=== PATIENT | female | born 1980 | race Caucasian/White ===

== ENCOUNTER 2016-10-15 08:19 | Emergency (ER) | payer OTHER ==
[~2016-10-15 08:19] MED LIST: AMOXICILLIN500 M1 PO; IBUPROFEN800 MG PO; LORTAB 7.5-3251 EACH PO; MUCINEX DM1 TAB.SR . PO; NECON1 EACH PO; NO MEDICATIONS; TRAMADOL HCL50 M1 PO; VIBRAMYCIN100 M1 PO; VICODIN 5/1 TAB 5/50 PO; VISTARIL PO; VOLTAREN75 MG PO; ZITHROMAX PO
== END 2016-10-15 08:48 | disposition home or self-care (01) ==
LOC: CED 08:19
DX: L03.314 Cellulitis of groin (principal); L03.317 Cellulitis of buttock; L02.214 Cutaneous abscess of groin; L02.31 Cutaneous abscess of buttock; F17.200 Nicotine dependence, unspecified, uncomplicated
CPT/HCPCS: 99282

== ENCOUNTER 2016-10-19 07:36 | Inpatient (IN) | payer OTHER ==
--- NOTE | ~2016-10-19 | OR ---
Unit #: [id number] #: [id number] Patient: SANTI LATHAM [id number] [address] [address] [id number] I MR#: [id number] NAME: SANTI LATHAM ROOM: 464 Date of Procedure: 10/19/2016 Admission Date: 10/19/2016 Surgeon: Aric Durbin M.D. : 1980 Attending Physician: Monica Acosta M.D. OPERATIVE REPORT PREOPERATIVE DIAGNOSIS Left groin abscess. POSTOPERATIVE DIAGNOSIS Left groin abscess. PROCEDURE PERFORMED Excisional debridement down to muscle fascia of 10 cm x 3 cm left groin abscess with a knife. ANESTHESIA General anesthesia. ESTIMATED BLOOD LOSS Minimal. IV FLUIDS 500 crystalloid. COMPLICATIONS None. INDICATIONS FOR PROCEDURE The patient is a 36-year-old IV drug abuser, who has an abscess in her left groin. DESCRIPTION OF PROCEDURE The patient was taken to the operating theater and placed in supine position. General anesthesia was induced. Left groin was prepped and draped. An elliptical incision was then made inclusive with necrosis measuring 10 x 3 cm. This was taken down to the muscle fascia. There were multiple loculations, which were broken up. I took anaerobic and aerobic cultures. I excised all necrotic tissue with a knife. I then irrigated with normal saline and packed with Betadine. The patient tolerated the procedure well and sent to recovery room in good condition. Dictated by... Cesia Solomon/andres Unit #: [id number] #: [id number] Patient: SANTI LATHAM TD: 10/20/2016 22:50 JOB #: [id number] OPERATIVE REPORT Page 1 of 1 X Aric Durbin MD PROCEDURE OPERATIVE NOTE
--- NOTE | ~2016-10-19 | CO ---
Unit #: [id number] #: [id number] Patient: SANTI LATHAM [id number] [address] [place], [place] [address] [id number] I MR#: [id number] NAME: SANTI LATHAM. ROOM: 464 Age: 36 Sex: F Admission Date: 10/19/2016 : 1980 Attending Physician: Monica Acosta M.D. Consultation Date: 10/20/2016 CONSULTATION REPORT BRIEF HISTORY The patient is a 37-year-old with long-term history of IV drug abuse, who presents with enlarging left groin mass. She has been here for approximately 1 week. She has been injecting IV drugs into this region. PAST MEDICAL HISTORY She has had previous drainages of abscess secondary to IV drug abuse. She has had a tubal ligation. MEDICATIONS None. SOCIAL HISTORY IV drugs specifically heroin and methamphetamine. Does smoke half pack of cigarettes daily. FAMILY HISTORY Negative for GI malignancy. REVIEW OF SYSTEMS No cardiopulmonary complaints at this time. Else, 10 systems reviewed and negative. PHYSICAL EXAMINATION GENERAL: She is awake, alert, appropriate, currently afebrile. HEENT: Unremarkable. NECK: Supple. No JVD. Trachea midline. LUNGS: Clear to auscultation. Bilateral breath sounds symmetric. CARDIOVASCULAR: Regular rate and rhythm. ABDOMEN: Soft, nontender, and nondistended. I palpate no masses. No hepatosplenomegaly. EXTREMITIES: Shows a mass in the left groin measuring 12 cm x 3 cm. This is fluctuant tender with erythema. DIAGNOSTIC STUDIES LABORATORY RESULTS: Show a white count of 7.8. ASSESSMENT Left groin abscess. PLAN Recommend I and D of left groin abscess discussed in detail. Unit #: [id number] #: [id number] Patient: SANTI LATHAM Dictated by... Cesia SolomonO/andres TD: 10/20/2016 06:54 JOB #: [id number] CONSULTATION REPORT Page 1 of 1 X Aric Durbin MD X CONSULTATION REPORT
--- NOTE | ~2016-10-19 | DS ---
Unit #: [id number] #: [id number] Patient: SANTI LATHAM [id number] [address] [address] [id number] I MR#: [id number] NAME: SANTI LATHAM ROOM: 464 Age: 36 Sex: F Admission Date: 10/19/2016 : 1980 Discharge Date: 10/21/2016 Attending Physician: Monica Acosta M.D. Primary Care Physician: No Primary Care Physician DISCHARGE SUMMARY ADDENDUM Patient's laboratory results were reviewed and patient is positive for hepatitis C. To the best of my knowledge, this is a new diagnosis. When I attempted to contact patient with information as provided on last admission, I reached her mother who stated she does not have a contact number for the patient and patient no longer lives at the address listed. If patient is readmitted, will need to discuss outpatient treatment of hepatitis C. Dictated by... Monica Acosta M.D. KATHYA/dean TD: 10/24/2016 10:05 JOB #: [id number] DISCHARGE SUMMARY Page 1 of 1 X Monica Acosta MD X DISCHARGE SUMMARY
--- NOTE | ~2016-10-19 | DS ---
Unit #: [id number] #: [id number] Patient: SANTI LATHAM [id number] [address] [address] [id number] I MR#: [id number] NAME: SANTI LATHAM ROOM: 464 Age: 36 Sex: F Admission Date: 10/19/2016 : 1980 Discharge Date: 10/21/2016 Attending Physician: Monica Acosta M.D. Primary Care Physician: No Primary Care Physician DISCHARGE SUMMARY ADDENDUM I am still awaiting approval of Dalvance. However, the patient is clinically stable and leaving the floor frequency. If Dalvance is not approved today, I will send her home on clindamycin 300 mg p.o. t.i.d. for 10 days. Dictated by... Monica Acosta M.D. [facility]/ravin TD: 10/21/2016 22:05 JOB #: [id number] DISCHARGE SUMMARY Page 1 of 1 X Monica Acosta MD DISCHARGE SUMMARY
--- NOTE | ~2016-10-19 | DS ---
Unit #: [id number] #: [id number] Patient: SANTI WANG [id number] [address] [address] [id number] I MR#: [id number] NAME: SANTI WANG ROOM: 464 Age: 36 Sex: F Admission Date: 10/19/2016 : 1980 Discharge Date: 10/21/2016 Attending Physician: Monica Acosta M.D. Primary Care Physician: Primary Care Physician No DISCHARGE SUMMARY PRINCIPAL DIAGNOSES 1. Left groin abscess, status post incision and drainage and debridement. 2. Hypokalemia. 3. Hypomagnesemia. 4. Normocytic anemia. 5. IV drug abuse. 6. Polysubstance abuse including methamphetamine and heroin. 7. Tobaccoism. CONSULTANTS Dr. Durbin, general surgery PROCEDURES Excision debridement down to muscle and fascia of 10 cm x 3 cm left groin abscess. This occurred without complication. CLINICAL HISTORY AND HOSPITAL COURSE Ms. Wang is a 36-year-old female who presents to the emergency department with swelling and redness of the left groin. The patient has a history of MRSA abscess in the past. In the emergency department, the patient was afebrile and white blood cell count was normal. However, examination revealed significant abscess in the left groin and patient was subsequently admitted. Dr. Durbin was consulted and patient underwent incision, drainage and debridement of the region. Postoperatively she has done well. Unfortunately, cultures from surgery were not sent and, given her history of MRSA, I am going to try to arrange Dalvance to give her prior to discharge. She will have to pack wound twice daily and patient states she feels comfortable doing this. DISCHARGE CONDITION Stable. DISCHARGE STATUS Discharge to home. DISCHARGE MEDICATIONS 1. Percocet 5/325 one tablet p.o. q.4 h. p.r.n. for pain. Number given 15. 2. Dalvance 1500 mg IV x1. DISCHARGE INSTRUCTIONS 1. The patient was instructed to do normal saline wet to dry dressings Unit #: [id number] #: [id number] Patient: SANTI WANG b.i.d. 2. She is to refrain from any further IV drug abuse and/or tobacco use. 3. She can increase her activity as tolerated. FOLLOWUP The patient will follow up in [place] wound clinic in 10-14 days. Dictated by... Monica Acosta M.D. KATHYA/mirian TD: 10/21/2016 19:11 JOB #: [id number] DISCHARGE SUMMARY Page 1 of 1 X Monica Acosta MD X DISCHARGE SUMMARY
--- NOTE | ~2016-10-19 | HP ---
Unit #: [id number] #: [id number] Patient: SANTI LATHAM [id number] [address] [place], [place] [address] [id number] E MR#: [id number] NAME: SANTI LATHAM ROOM: Age: 36 Sex: F Admission Date: 10/19/2016 : 1980 Attending Physician: Zander Lua Aprn Primary Care Physician: No Primary Care Physician HISTORY AND PHYSICAL CHIEF COMPLAINT Abscess. HISTORY OF PRESENT ILLNESS The patient is a 36-year-old female with a past medical history of IV drug use, MRSA, seizure, who presented to the emergency department for evaluation of the above. The patient states that she has had an abscess in the left groin for about six days. She states that it started as a bump. It has gotten increasingly red, warm and painful. She was seen in the emergency department on October 25, 2016 for the same problem. She was discharged home on Bactrim which she states that she has been taking as prescribed. These symptoms have persisted and so she returned today for evaluation. She states that the area has been draining pus. She denies any fever. She has had nausea, vomiting. In the emergency department, initial temperature was 97.7, pulse 82, blood pressure 107/86, WBC count 7.6. She was given Rocephin. She is being admitted to [facility] for evaluation and further treatment. PAST MEDICAL HISTORY 1. Admission to [facility], December 03-2015 for right upper extremity abscess. She underwent incision and drainage during that admission. Wound culture from December 05, 2015 grew rare MRSA and 1+ (1) . 2. History of seizure. The patient denies current antiepileptic medication. She states that her last seizure was more than a year ago. PAST SURGICAL HISTORY 1. Incision and drainage right upper extremity abscess. 2. Bilateral tuba ligation. SOCIAL HISTORY The patient uses IV drugs, specifically heroin. The last use was on the day prior to admission. She also reports methamphetamine use. She denies alcohol use. She smokes a half pack of cigarettes daily. FAMILY HISTORY Notable for both parents being healthy REVIEW OF SYSTEMS Unit #: [id number] #: [id number] Patient: SANTI LATHAM A complete review of systems is negative except as indicated in the HPI. PHYSICAL EXAMINATION GENERAL APPEARANCE: The patient is a female who is sleeping but wakes to voice. VITAL SIGNS: Temperature 97.7. Pulse 82. Respirations 18. Blood pressure 107/86. HEENT: The head is atraumatic. Dentition is poor. NECK: Supple. Trachea is midline. CARDIOVASCULAR: Regular rate and rhythm. LUNGS: Clear to auscultation bilaterally with no increased work of breathing. ABDOMEN: Soft, nontender with bowel sounds present in all four quadrants. EXTREMITIES: Nontender with no pedal edema. NEUROLOGIC: The patient is awake and alert. She follows commands. PSYCHIATRIC: Mood and affect are normal. The patient is cooperative. SKIN: The left groin area demonstrates an area of erythema, warmth and tenderness to palpation. DIAGNOSTIC STUDIES LABORATORY: Complete blood count is completely normal. Urine tox screen is positive for amphetamine and opiates. Lactic acid is 0.8. Comprehensive metabolic panel notable for sodium of 130, potassium 2.8, chloride 91, BUN and creatinine 8 and 0.7 respectively, calcium 8.3 but corrects when albumin of 3.1 is accounted for, AST 43. Urine test is negative. ASSESSMENT The patient is a 36-year-old female with: 1. Left groin abscess. The patient received Rocephin in the emergency department. She failed outpatient treatment with Bactrim. 2. IV drug use with last use being yesterday. Tox screen is positive for opiates and amphetamine. 3. History of MRSA. 4. Hypokalemia. 5. History of seizure, not currently on antiepileptic medication. 6. Tobacco abuse. PLAN 1. Admit to med/surg. 2. Normal saline at 125 mL/hour. 3. Regular diet. 4. NPO after midnight. 5. Blood cultures x2. 6. Would culture and sensitivity. 7. Vancomycin IV and Zosyn IV pending further workup. 8. PRN Zofran. 9. PRN Tylenol. 10. Consult [facility] regarding groin abscess. 11. Hepatitis panel. 12. HIV. 13. Position Classification Specialist/Social Work consult regarding IV drug use. 14. Check magnesium level. 15. Potassium and magnesium protocol. 16. Repeat labs in the morning including magnesium. 17. SCDs for DVT prophylaxis. 18. Additional workup and consultants based on above. Unit #: [id number] #: [id number] Patient: SANTI LATHAM Dictated by Cesia Ramos/[place] TD: 10/19/2016 12:03 JOB #: [id number] HISTORY AND PHYSICAL Page 1 of 1 X Michelle Escobar MD X HISTORY AND PHYSICAL
[2016-10-19 08:19] LABS: BASOPHIL# 0.1 X10e3 (0-0.3); BASOPHIL% 0.9 % (0-2.5); EOSINOPHIL# 0.1 X10e3 (0-0.7); EOSINOPHIL% 1.4 % (0.0-7.0); HEMATOCRIT 35.8 % (35.0-45.0); LYMPHOCYTE% 26.5 % (17.0-45.0); MEAN CELL VOLUME 90.3 FL (83-96); MEAN CORPUSCULAR HEMOGLOBIN 30.3 PG (28-34); MEAN CORPUSCULAR HGB CONC 33.5 g/dL (30-36); MEAN PLATELET VOLUME 8.3 FL (6.5-11.5); MONOCYTE# 0.7 X10e3 (0-1.0); MONOCYTE% 8.6 % (3.0-12.0); NEUTROPHIL# 4.8 X10e3 (1.5-7.1); NEUTROPHIL% 62.6 % (40-75); PLATELET COUNT 297 X10e3 (140-420); RED BLOOD COUNT 3.96 X10e (3.90-5.30); WHITE BLOOD COUNT 7.6 X10e3 (4.0-10.5)
[2016-10-19 08:22] LABS: DIFF IND NO
[2016-10-19 08:50] LABS: AMPHETAMINE POS (NEG); BARBITURATES NEG (NEG); BENZODIAZEPINES NEG (NEG); COCAINE NEG (NEG); MARIJUANA NEG (NEG); OPIATES POS (NEG); TRICYCLIC ANTIDEPRESSANTS NEG (NEG); U METHADONE NEG (NEG)
[2016-10-19 09:06] LABS: ALBUMIN SERUM 3.1 g/dL (3.5-5.0); BILIRUBIN,TOTAL 1.5 mg/dL (0.2-2.0); BUN/CREATININE RATIO 11.42; CALCIUM SERUM 8.3 mg/dL (8.4-10.2); CREATININE SERUM 0.7 mg/dL (0.6-1.4); GLOM FILT RATE Estimated 112.3 mL/min (>60); PROTEIN TOTAL SERUM 6.7 g/dL (6.0-8.3)
[2016-10-19 09:08] LABS: POTASSIUM 2.8 mmol/L (3.5-5.1)
[2016-10-20 03:32] LABS: BASOPHIL# 0.1 X10e3 (0-0.3); BASOPHIL% 1.1 % (0-2.5); EOSINOPHIL% 0.7 % (0.0-7.0); HEMATOCRIT 35.6 % (35.0-45.0); HEMOGLOBIN 11.8 gm/dL (12.0-16.0); LYMPHOCYTE# 2.3 X10e3 (1.0-3.5); LYMPHOCYTE% 37.3 % (17.0-45.0); MEAN CELL VOLUME 89.7 FL (83-96); MEAN CORPUSCULAR HEMOGLOBIN 29.7 PG (28-34); MEAN CORPUSCULAR HGB CONC 33.1 g/dL (30-36); MEAN PLATELET VOLUME 8.3 FL (6.5-11.5); MONOCYTE# 0.5 X10e3 (0-1.0); MONOCYTE% 8.3 % (3.0-12.0); NEUTROPHIL# 3.2 X10e3 (1.5-7.1); NEUTROPHIL% 52.6 % (40-75); PLATELET COUNT 270 X10e3 (140-420); RED BLOOD COUNT 3.97 X10e (3.90-5.30); RED CELL DISTRIBUTION WIDTH 12.4 % (11.0-15.5); WHITE BLOOD COUNT 6.1 X10e3 (4.0-10.5)
[2016-10-20 03:36] LABS: DIFF IND NO
[2016-10-20 04:03] LABS: ALBUMIN SERUM 2.5 g/dL (3.5-5.0); ALKALINE PHOSPHATASE 49 U/L (32-92); ALT (SGPT) 28 U/L (10-40); AST (SGOT) 30 U/L (10-42); BILIRUBIN,TOTAL 1.1 mg/dL (0.2-2.0); CALCIUM SERUM 7.6 mg/dL (8.4-10.2); CARBON DIOXIDE 26 mmol/L (22-31); CHLORIDE 101 mmol/L (100-111); CREATININE SERUM 0.6 mg/dL (0.6-1.4); GLOM FILT RATE Estimated 118.1 mL/min (>60); GLUCOSE FASTING 97 mg/dL (70-110); MAGNESIUM 1.7 mg/dL (1.6-3.0); PROTEIN TOTAL SERUM 6.2 g/dL (6.0-8.3); SODIUM 135 mmol/L (135-145)
[2016-10-20 04:05] LABS: BLOOD UREA NITROGEN <5 mg/dL (9-23); BUN/CREATININE RATIO 8.33
[2016-10-20 04:06] LABS: POTASSIUM 2.8 mmol/L (3.5-5.1)
[2016-10-21 03:36] LABS: HEMATOCRIT 32.6 % (35.0-45.0); HEMOGLOBIN 10.8 gm/dL (12.0-16.0); MEAN CELL VOLUME 90.6 FL (83-96); MEAN CORPUSCULAR HEMOGLOBIN 30.1 PG (28-34); MEAN CORPUSCULAR HGB CONC 33.2 g/dL (30-36); MEAN PLATELET VOLUME 7.9 FL (6.5-11.5); RED BLOOD COUNT 3.6 X10e (3.90-5.30); RED CELL DISTRIBUTION WIDTH 12.3 % (11.0-15.5); WHITE BLOOD COUNT 5.8 X10e3 (4.0-10.5)
[2016-10-21 04:05] LABS: BLOOD UREA NITROGEN <5 mg/dL (9-23); BUN/CREATININE RATIO 8.33; CALCIUM SERUM 7.5 mg/dL (8.4-10.2); CARBON DIOXIDE 28 mmol/L (22-31); CHLORIDE 106 mmol/L (100-111); CREATININE SERUM 0.6 mg/dL (0.6-1.4); GLOM FILT RATE Estimated 118.1 mL/min (>60); GLUCOSE FASTING 106 mg/dL (70-110); MAGNESIUM 1.5 mg/dL (1.6-3.0); POTASSIUM 3.5 mmol/L (3.5-5.1); SODIUM 139 mmol/L (135-145)
[2016-10-21] MEDS ORDERED: CLINDAMYCIN HC300 MG PO (16:03)
[2016-10-21] MEDS ORDERED: PERCOCET 5/321 UDTAB PO (16:03)
[2016-10-23 04:39] LABS: HA AB IGM (HEPPAN) Nonreactive (()); HB CORE AB IGM (HEPPAN) Nonreactive (Nonreactive); HB S AG (HEPPAN) Nonreactive (Nonreactive); HEP C AB (HEPPAN) Reactive (Nonreactive)
== END 2016-10-21 18:30 | disposition home or self-care (01) | DRG 571 ==
LOC: CED 07:36 → CEDOF 10:24 → C4C 18:43
PROVIDERS: Family Medicine; Internal Medicine; Nurse Practitioner Family
PROC: 0JBC0ZZ Excision of Pelvic Region Subcutaneous Tissue and Fascia, Open Approach (ICD-10-PCS; principal; 2016-10-19)
DX: L02.214 Cutaneous abscess of groin (principal); B17.10 Acute hepatitis C without hepatic coma; E44.0 Moderate protein-calorie malnutrition; E83.42 Hypomagnesemia; E87.6 Hypokalemia; D64.9 Anemia, unspecified; F15.10 Other stimulant abuse, uncomplicated; F11.10 Opioid abuse, uncomplicated; F17.210 Nicotine dependence, cigarettes, uncomplicated; Z86.14 Personal history of Methicillin resistant Staphylococcus aureus infection; Z68.20 Body mass index [BMI] 20.0-20.9, adult
CPT/HCPCS: 36415; 80048; 80053; 80074; 80202; 80307; 83605; 83735; 84132; 84703; 85025; 85027; 87040; 87522; 87806; 96361; 96365; 96376; 99285; J0696; J1885; J2250; J2270; J2405; J2543; J3010; J3370; J3475